=== PATIENT | female | born 1970 | race Hispanic/Latino ===

== ENCOUNTER → 2022-07-07 | Outpatient (CLI) | payer OTHER, MEDICARE | END | disposition home or self-care (01) | LOC: RAH 15:27 | PROVIDERS: ATTEND Family Medicine Sports Medicine | DX: Z12.31 Encounter for screening mammogram for malignant neoplasm of breast (principal) | CPT/HCPCS: 77067 ==

== ENCOUNTER 2022-07-29 10:37 | Emergency (ER) | payer OTHER, MEDICARE ==
[~2022-07-29] VITALS: Ht 162.6 cm; Wt 61.2 kg
[2022-07-29 11:16] VITALS: BP 165/89
[2022-07-29] MEDS ORDERED: LIDOCAINE 5% TOPICAL PATCH TP ONE (12:00)
== END 2022-07-29 14:54 | disposition home or self-care (01) ==
LOC: EDH 10:37
DX: M79.642 Pain in left hand (principal); V89.2XXA Person injured in unspecified motor-vehicle accident, traffic, initial encounter; Y93.89 Activity, other specified; Y92.89 Other specified places as the place of occurrence of the external cause; Y99.8 Other external cause status; R11.12 Projectile vomiting; R51.9 Headache, unspecified
CPT/HCPCS: 71045; 71100; 73130

== ENCOUNTER → 2022-12-30 | Outpatient (CLI) | payer OTHER, MEDICARE | END | disposition home or self-care (01) | LOC: RAH 14:31 | PROVIDERS: ATTEND Family Medicine Sports Medicine | DX: S82.092D Other fracture of left patella, subsequent encounter for closed fracture with routine healing (principal); M25.562 Pain in left knee; M25.552 Pain in left hip; Z98.890 Other specified postprocedural states; V89.2XXD Person injured in unspecified motor-vehicle accident, traffic, subsequent encounter | CPT/HCPCS: 73721 ==

== ENCOUNTER → 2024-09-05 | Outpatient (CLI) | payer OTHER, MEDICARE ==
--- NOTE | 2024-09-06 09:17 | HMCIMG ---
MAMMO SCREENING BILATERAL HISTORY: Screening mammogram. COMPARISON: 07/07/2022 TECHNIQUE: Bilateral screening mammogram with CAD was performed with craniocaudal and mediolateral oblique projections. FINDINGS: There are scattered areas of fibroglandular density. There is no evidence of a dominant mass, or suspicious microcalcification. There is no evidence of nipple retraction or skin thickening. IMPRESSION: 1. Stable mammogram. Patient was entered into a reminder system with a target due date for their next mammogram. BI-RADS: CATEGORY 2: BENIGN FINDINGS Recommend monthly self breast exam as well as annual clinical examination. A negative x-ray should not delay biopsy if a dominant or clinically suspicious mass is present, since 8-10% of cancers are not identified by mammography. Dense breasts particularly, may obscure an underlying neoplasm. Some of these may be detected clinically and therefore, clinical examination is an essential part of breast evaluation.
== END | disposition home or self-care (01) ==
LOC: RAH 13:50
PROVIDERS: ATTEND Family Medicine Sports Medicine
DX: Z12.31 Encounter for screening mammogram for malignant neoplasm of breast (principal); R92.323 Mammographic fibroglandular density, bilateral breasts
CPT/HCPCS: 77067